=== PATIENT | male | born 1985 | race American Indian/Alaskan Native ===

== ENCOUNTER 2019-06-08 00:42 | Emergency (ER) | payer OTHER ==
--- NOTE | 2019-06-08 01:53 | XRay Report ---
Left foot, 3 views INDICATION: Pain following injury tonight FINDINGS: There are small minimally displaced fractures through the bases of the proximal phalanges o f the third and fourth toes. In addition there is a large fracture fragment from the head of the prox imal phalanx of the third toe with secondary subluxation at the proximal interphalangeal joint of the third toe. The first, second and fifth toes appear intact. Signer Name: Ilir Mcdonald MD Signed: 06/08/2019 1:49 AM Workstation Name: [id number]
--- NOTE | 2019-06-08 03:02 | Emergency Department Report ---
ED Extremity Problem HPI - General Chief complaint: Extremity Injury, Lower Stated complaint: TOE INJURY Time Seen by Provider: 06/08/19 02:33 Source: patient Mode of arrival: Ambulatory Limitations: No Limitations - History of Present Illness Initial comments: Patient is a 34-year-old male who presents to the emergency room with complaints of left third and fourth toe pain began just prior to arrival. He states he was sleeping and dreaming that he was running from a dog. He states he kicked the nightstand with his toes. He has abrasions to his toes. He states he has been ambulatory with some discomfort. pt states his last tetanus has been within the last 5 years. He is currently wearing a postop shoe which he states he got from his son. Denies any past medical history or allergies to medications. Denies any prior injury of the left foot or toes. - Related Data Previous Rx's Medication Instructions Recorded Last Taken Type Acetaminophen/Codeine [Tylenol 1 tab PO Q6H PRN #10 tab 06/08/19 Unknown Rx /Codeine # 3 tab] Ibuprofen [Motrin 800 MG tab] 800 mg PO Q8HR PRN #14 tablet 06/08/19 Unknown Rx cephALEXin [Keflex] 500 mg PO QID 7 Days #28 capsule 06/08/19 Unknown Rx Allergies Allergy/AdvReac Type Severity Reaction Status Date / Time No Known Allergies Allergy Unverified 06/08/19 00:49 ED Review of Systems ROS: Stated complaint: TOE INJURY Other details as noted in HPI Comment: All other systems reviewed and negative ED Past Medical Hx - Past Medical History Previous Medical History?: Yes Hx Diabetes: Yes - Surgical History Past Surgical History?: No - Social History Smoking Status: Never Smoker - Medications Home Medications: Home Medications Medication Instructions Recorded Confirmed Last Taken Type Acetaminophen/Codeine [Tylenol 1 tab PO Q6H PRN #10 tab 06/08/19 Unknown Rx /Codeine # 3 tab] Ibuprofen [Motrin 800 MG tab] 800 mg PO Q8HR PRN #14 tablet 06/08/19 Unknown Rx cephALEXin [Keflex] 500 mg PO QID 7 Days #28 capsule 06/08/19 Unknown Rx ED Physical Exam - General Limitations: No Limitations General appearance: alert, in no apparent distress - Head Head exam: Present: atraumatic, normocephalic - Eye Eye exam: Present: normal appearance - ENT ENT exam: Present: mucous membranes moist - Extremities Exam Extremities exam: Present: other (TTP of the left third and fourth toes, obvious deformity to the left 3rd toe, edema to both toes present, two small abrasions to the dorsal surface of each toe, he is able to move all toes, 2+ pulses, sensation intact, no TTP of the left foot) - Neurological Exam Neurological exam: Present: alert, oriented X3 - Psychiatric Psychiatric exam: Present: normal affect, normal mood - Skin Skin exam: Present: warm, dry ED Course Vital Signs 06/08/19 06/08/19 00:47 04:16 Temperature 98.3 F 98 F Pulse Rate 68 66 Respiratory 20 18 Rate Blood Pressure 183/101 Blood Pressure 143/90 [Left] O2 Sat by Pulse 99 99 Oximetry ED Medical Decision Making - Radiology Data Radiology results: report reviewed Left foot, 3 views INDICATION: Pain following injury tonight FINDINGS: There are small minimally displaced fractures through the bases of the proximal phalanges of the third and fourth toes. In addition there is a large fracture fragment from the head of the proximal phalanx of the third toe with secondary subluxation at the proximal interphalangeal joint of the third toe. The first, second and fifth toes appear intact. Signer Name: Ilir Mcdonald MD Signed: 06/08/2019 1:49 AM Workstation Name: [id number] Transcribed By: EYAD Dictated By: Ilir Mcdonald MD Electronically Authenticated By: Ilir Mcdonald MD Signed Date/Time: 06/08/19 0149 - Medical Decision Making Patient is a 34-year-old male who presents to the emergency room with complaints of left third and fourth toe pain began just prior to arrival. He states he was sleeping and dreaming that he was running from a dog. He states he kicked the nightstand with his toes. He has abrasions to his toes. He states he has been ambulatory with some discomfort. pt states his last tetanus has been within the last 5 years. He is currently wearing a postop shoe which he states he got from his son. Denies any past medical history or allergies to medica tions. Denies any prior injury of the left foot or toes. on exam: TTP of the left third and fourth toes, obvious deformity to the left 3rd toe, edema to both toes present, two small abrasions to the dorsal surface of each toe, he is able to move all toes, 2+ pulses, sensation intact, no TTP of the left foot. XR of the foot: There are small minimally displaced fractures through the bases of the proximal phalanges of the third and fourth toes. In addition there is a large fracture fragment from the head of the proximal phalanx of the third toe with secondary subluxation at the proximal interphalangeal joint of the third toe. The first, second and fifth toes appear intact. abrasions cleaned with betadine. pt already is wearing orthoshoe. pt given prescription for pain med, anti-inflammatory, and abx. advised to please take medication as prescribed. Do not drive or operate heavy machinery while taking pain medication. May use ice, rest, elevation of the leg. Follow up with Dr. Freitas, orthopedic in the next 2-3 days. Return to the emergency room for any new or worsening symptoms. - Differential Diagnosis fx, strain, sprain, dislocation, tendon/ligament injury Critical care attestation.: If time is entered above; I have spent that time in minutes in the direct care of this critically ill patient, excluding procedure time. ED Disposition Clinical Impression: Toe fracture, left Qualifiers: Encounter type: initial encounter Toe: lesser toe Fracture type: closed Phalanx: proximal Fracture alignment: displaced Qualified Code(s): S92.512A - Displaced fracture of proximal phalanx of left lesser toe(s), initial encounter for closed fracture Disposition: DC- TO HOME OR SELFCARE Is pt being admited?: No Does the pt Need Aspirin: No Condition: Stable Instructions: Toe Fracture (ED) Additional Instructions: Please take medication as prescribed. Do not drive or operate heavy machinery while taking pain medication. May use ice, rest, elevation of the leg. Follow up with Dr. Freitas, orthopedic in the next 2-3 days. Return to the emergency room for any new or worsening symptoms. Prescriptions: cephALEXin [Keflex] 500 mg PO QID 7 Days #28 capsule Ibuprofen [Motrin 800 MG tab] 800 mg PO Q8HR PRN #14 tablet PRN Reason: Pain, Moderate (4-6) Acetaminophen/Codeine [Tylenol /Codeine # 3 tab] 1 tab PO Q6H PRN #10 tab PRN Reason: Pain , Severe (7-10) Referrals: MERY FREITAS MD [Staff Physician] - 2-3 Days Time of Disposition: 03:36 Print Language: DANISH
[2019-06-08 04:17] VITALS: BP 143/90
== END 2019-06-08 04:23 | disposition home or self-care (01) ==
LOC: ED 00:42
DX: S92.512A Displaced fracture of proximal phalanx of left lesser toe(s), initial encounter for closed fracture (principal); E11.9 Type 2 diabetes mellitus without complications; Z79.899 Other long term (current) drug therapy; W22.8XXA Striking against or struck by other objects, initial encounter; Y93.89 Activity, other specified; Y92.89 Other specified places as the place of occurrence of the external cause; Y99.8 Other external cause status